=== PATIENT | male | born 1965 | race Caucasian/White ===

== ENCOUNTER 2019-06-05 07:30 | Emergency (ER) | payer BC ==
[2019-06-05 07:50] VITALS: BP 137/91
--- NOTE | 2019-06-05 08:30 | UC ---
Ear Complaint HPI - HPI Summary HPI Summary: right ear pain x 3 days pain is 6 out of 10 , worse with swimming, better with Tylenol has been swimming a lot, history of frequent swimmers ears no fever, no cold symptoms - History of Current Complaint Chief Complaint: UCEar Stated Complaint: RIGHT EAR Time Seen by Provider: 06/05/19 08:18 Hx Obtained From: Patient Onset/Duration: Gradual Onset, Lasting Days - 3, Still Present Severity Initially: Moderate Severity Currently: Moderate Pain Intensity: 2 Aggravating Factors: Other - swimming Alleviating Factors: OTC Meds Associated Signs/Symptoms: Negative: Discharge, Hearing Loss, Foreign Body Sensation, Trauma to Ear, Swelling @, URI Symptoms - Allergies/Home Medications Allergies/Adverse Reactions: Allergies Allergy/AdvReac Type Severity Reaction Status Date / Time seasonal Allergy Congestion Uncoded 06/05/19 07:50 Home Medications: Home Medications Isopropyl Alcohol in Glycerin [Swim Ear Drops] 06/05/19 [History] Naproxen Sodium [Aleve] 06/05/19 [History] Pseudoephedrine TAB* [Sudafed TAB*] 30 mg PO PRN 06/05/19 [History] PMH/Surg Hx/FS Hx/Imm Hx Previously Healthy: Yes - Surgical History Surgical History: Yes Surgery Procedure, Year, and Place: R knee, R shoulder, deviated septum correction, L hernia repair. prostate removed 09/09 - Family History Known Family History: Positive: Non-Contributory - Social History Alcohol Use: Occasionally Substance Use Type: None Smoking Status (MU): Never Smoked Tobacco Review of Systems All Other Systems Reviewed And Are Negative: Yes Constitutional: Positive: Negative Skin: Positive: Negative Eyes: Positive: Negative ENT: Positive: Ear Ache Respiratory: Positive: Negative Is Patient Immunocompromised?: No Physical Exam Triage Information Reviewed: Yes Appearance: Well-Appearing, No Pain Distress, Well-Nourished Vital Signs: Initial Vital Signs Temp 97.9 F 06/05/19 07:43 Pulse 54 06/05/19 07:43 Resp 16 06/05/19 07:43 BP 137/91 06/05/19 07:43 Pulse Ox 96 06/05/19 07:43 Vital Signs Reviewed: Yes Eye Exam: Normal Eyes: Positive: Conjunctiva Clear ENT: Positive: Normal ENT inspection, Hearing grossly normal, Pharynx normal, TMs normal, Other - erythema right ear canal tenderness right ear. Negative: Nasal congestion, Nasal drainage Neck: Positive: Supple, Nontender, No Lymphadenopathy Respiratory: Positive: Chest non-tender, Lungs clear, Normal breath sounds Cardiovascular: Positive: RRR, No Murmur, Pulses Normal Ear Complaint Course/Dx - Differential Dx/Diagnosis Provider Diagnosis: Otitis externa of right ear Discharge - Sign-Out/Discharge Documenting (check all that apply): Patient Departure All imaging exams completed and their final reports reviewed: No Studies - Discharge Plan Condition: Stable Disposition: HOME Prescriptions: Neomycin/Polymyxin B/Hydrocort [Ragcuhht-Gjxzabuwl-Xe Ear Susp] 4 drop OT QID # 1 bottle Patient Education Materials: Otitis Externa (ED) Referrals: Tony Hansen MD [Primary Care Provider] - If Needed - Billing Disposition and Condition Condition: STABLE Disposition: Home
== END 2019-06-05 08:30 | disposition home or self-care (01) ==
LOC: UCCORT 07:30
DX: H60.91 Unspecified otitis externa, right ear (principal)
CPT/HCPCS: 99212; G0463

== ENCOUNTER 2019-07-01 16:41 | Emergency (ER) | payer BC ==
--- NOTE | 2019-07-01 16:50 | UC ---
Ear Complaint HPI - HPI Summary HPI Summary: Seen 06/05/19 for swimmer's Right ear, continues with pain and feeling "clogged" - History of Current Complaint Stated Complaint: RIGHT EAR CONCERN Time Seen by Provider: 07/01/19 16:48 Hx Obtained From: Patient Onset/Duration: Sudden Onset, Lasting Weeks Severity Initially: Mild Severity Currently: Moderate - Allergies/Home Medications Allergies/Adverse Reactions: Allergies Allergy/AdvReac Type Severity Reaction Status Date / Time seasonal Allergy Congestion Uncoded 07/01/19 16:54 PMH/Surg Hx/FS Hx/Imm Hx Previously Healthy: Yes - Surgical History Surgical History: Yes Surgery Procedure, Year, and Place: R knee, R shoulder, deviated septum correction, L hernia repair. prostate removed 09/09 - Family History Known Family History: Negative: Cardiac Disease, Hypertension, Non-Contributory - Social History Alcohol Use: Occasionally Substance Use Type: None Smoking Status (MU): Never Smoked Tobacco Review of Systems All Other Systems Reviewed And Are Negative: Yes ENT: Positive: Ear Ache Respiratory: Positive: Negative Cardiovascular: Positive: Negative Gastrointestinal: Positive: Negative Genitourinary: Positive: Negative Is Patient Immunocompromised?: No Physical Exam Triage Information Reviewed: Yes Appearance: Well-Appearing, Well-Nourished, Pain Distress Vital Signs Reviewed: Yes Eye Exam: Normal ENT Exam: Normal ENT: Positive: Pharyngeal erythema, TM bulging, TM red - noticable fluid behind the TM Dental Exam: Normal Neck: Positive: Supple, Enlarged Nodes @ - below the right ear Respiratory Exam: Normal Cardiovascular Exam: Normal Abdominal Exam: Normal Bowel Sounds: Positive: Present Musculoskeletal Exam: Normal Neurological Exam: Normal Psychological Exam: Normal Skin Exam: Normal Ear Complaint Course/Dx - Course Course Of Treatment: hx obtained, exam performed ,meds reviewed, treated for otitis media - Differential Dx/Diagnosis Differential Diagnosis/HQI/PQRI: Otitis Externa, Otitis Media, URI Provider Diagnosis: Right otitis media Discharge ED - Sign-Out/Discharge Documenting (check all that apply): Patient Departure All imaging exams completed and their final reports reviewed: No Studies - Discharge Plan Condition: Stable Disposition: HOME Prescriptions: Amoxicillin PO (*) [Amoxicillin 875 MG (*)] 875 mg PO BID #20 tab predniSONE [Prednisone 20 MG TAB] 20 mg PO DAILY #14 tablet Patient Education Materials: Ear Infection (ED) Referrals: Tony Hansen MD [Primary Care Provider] - Yemi Zimmerman MD [Medical Doctor] - Additional Instructions: 1. use the medication as prescribed. 2. Warm compresses to the right ear and side of neck 3. Follow up with ENT if not improving - Billing Disposition and Condition Condition: STABLE Disposition: Home
[2019-07-01 16:54] VITALS: BP 125/74
[2019-07-01] MEDS ORDERED: Amoxicillin PO (*) 500 MG CAP PO ONE (17:27)
== END 2019-07-01 17:32 | disposition home or self-care (01) ==
LOC: UCCORT 16:41
DX: H66.91 Otitis media, unspecified, right ear (principal)
CPT/HCPCS: 99212; A9270-GY; G0463

== ENCOUNTER 2021-12-17 05:43 | Inpatient (IN) ==
[2021-12-17] MEDS ORDERED: Lactated Ringers 1000 ml BAG 1,000 ML IV SCH (06:00)
[2021-12-17] MEDS ORDERED: Famotidine IV 10 MG/ML 2 ml VIAL (20 mg) IV ONE (06:00)
[2021-12-17] MEDS ORDERED: Buffered Lidocaine 1% SYRIN 1 ml INTRADERM ONE ×2 (06:00→06:08)
[2021-12-17] MEDS ORDERED: ceFAZolin 2 GM in NS PREMIX 2 GM/100 ML BAG IVPB ONE (06:09)
[2021-12-17] MEDS ORDERED: Famotidine IV 10 MG/ML 2 ml VIAL (20 mg) ONE (06:09)
[2021-12-17] MEDS ORDERED: Ondansetron 4 mg VIAL 2 MG/ML 2 ml VIAL ONE (07:17)
[2021-12-17] MEDS ORDERED: Dexamethasone IV 4 MG/ML VIAL 1 ml VIAL ONE (07:17)
[2021-12-17] MEDS ORDERED: Propofol 10 MG/ML 20 ML BTL ONE (07:17)
[2021-12-17] MEDS ORDERED: Midazolam 2 mg/2 ml VIAL 1 mg/ml 2 ml VIAL (2 mg) ONE ×2 (07:18→07:40)
[2021-12-17] MEDS ORDERED: Lidocaine 2% PF 5 ML VIAL ONE (07:18)
[2021-12-17] MEDS ORDERED: fentaNYL 100 mcg/2 ml 50 MCG/ML VIAL ONE (07:18)
[2021-12-17] MEDS ORDERED: Bupivacaine 0.5% SDV PF 30ML VIAL ONE (07:40)
[2021-12-17] MEDS ORDERED: Ondansetron 4 mg VIAL 2 MG/ML 2 ml VIAL IV PRN ×2 (07:57→08:37)
[2021-12-17] MEDS ORDERED: DiMENhydriNATE IV 50 mg/ml 1 ml VIAL IV PUSH PRN (07:57)
[2021-12-17] MEDS ORDERED: Naloxone 0.4 mg VIAL 0.4 mg/ml 1 ml VIAL IV PRN (07:57)
[2021-12-17] MEDS ORDERED: HYDROmorphone 1 MG/1 ML SYRINGE IV PRN (07:57)
[2021-12-17] MEDS ORDERED: Acetaminophen IV 1 GM/100ML 100 ML IV ONE (08:13)
[2021-12-17] MEDS ORDERED: Morphine 2 MG/ML SYRINGE IV PRN (08:37)
[2021-12-17] MEDS ORDERED: diPHENhydraMINE IV 50 MG/ML 1 ml VIAL (BENADRYL) IV PRN (08:37)
[2021-12-17] MEDS ORDERED: Magnesium Hydroxide LIQ 30 ML UDC PO PRN (08:37)
[2021-12-17] MEDS ORDERED: Ondansetron ODT 4 mg TAB 4 MG TAB PO PRN (08:37)
[2021-12-17] MEDS ORDERED: diPHENhydraMINE 25 mg TAB PO PRN (08:37)
[2021-12-17] MEDS ORDERED: Lactulose 30 ml UDC PO PRN (08:37)
[2021-12-17] MEDS ORDERED: EPHEDrine (Pressors) 50 MG/ML VIAL ONE (09:41)
[2021-12-17] MEDS: Vitamin THERAPEUTIC TAB PO SCH (14:01)
[2021-12-17] MEDS: Magnesium Hydroxide LIQ 30 ML UDC PO SCH ×2 (14:01→20:46)
[2021-12-17] MEDS: Lactated Ringers 1000 ml BAG 1,000 ML IV SCH (14:10)
[2021-12-17] MEDS: ceFAZolin 1 GM ADVAN 1 GM in NS 0.9% 50 ML 50 ML IVPB SCH (16:20)
[2021-12-17 19:35] LABS: Hematocrit 38 % (42-52); Hemoglobin 13.1 g/dL (14.0-18.0); Mean Corpuscular HGB Conc 34 g/dL (31-36); Mean Corpuscular Hemoglobin 32 pg (27-31); Mean Corpuscular Volume 92 fL (80-94); Mean Platelet Volume 8.9 fL (7.4-10.4); Platelet Count 154 10^3/uL (150-450); Red Blood Count 4.16 10^6 /uL (4.18-5.48); Red Cell Distribution Width 14 % (10-15); White Blood Count 7.3 10^3/uL (3.5-10.8)
[2021-12-17 19:52] LABS: Albumin 3.9 g/dL (3.2-5.2); Albumin/Globulin Ratio 1.6 (1-3); Calcium 8.9 mg/dL (8.6-10.3); Globulin 2.5 g/dL (2-4); Magnesium 1.9 mg/dL (1.9-2.7); Potassium 4.1 mmol/L (3.5-5.0); Total Bilirubin 0.8 mg/dL (0.2-1.0); Total Protein 6.4 g/dL (6.4-8.9); eGFR CKD-EPI 77.1 (>60)
[2021-12-18] MEDS: ceFAZolin 1 GM ADVAN 1 GM in NS 0.9% 50 ML 50 ML IVPB SCH ×2 (00:23→07:37)
[2021-12-18] MEDS: Lactated Ringers 1000 ml BAG 1,000 ML IV SCH (00:26)
[2021-12-18 06:49] LABS: Hematocrit 35 % (42-52); Mean Platelet Volume 9.3 fL (7.4-10.4); Platelet Count 128 10^3/uL (150-450)
[2021-12-18 06:58] LABS: Calcium 8.4 mg/dL (8.6-10.3); eGFR CKD-EPI 81.4 (>60)
[2021-12-18] MEDS: Vitamin THERAPEUTIC TAB PO SCH (07:38)
[2021-12-18] MEDS: Magnesium Hydroxide LIQ 30 ML UDC PO SCH (09:48)
[2021-12-18 11:36] VITALS: BP 122/65
== END 2021-12-18 13:55 | disposition home or self-care (01) | DRG 301 ==
LOC: AA 05:43 → INTOOBSV 05:43 → SSU 11:55
PROVIDERS: ADMIT Orthopaedic Surgery Adult Reconstructive Orthopaedic Surgery; ATTEND Orthopaedic Surgery Adult Reconstructive Orthopaedic Surgery